=== PATIENT | female | born 1985 | race Caucasian/White ===

== ENCOUNTER 2020-08-31 10:58 | Outpatient (CLI) | payer OTHER ==
[2020-08-31 21:10] LABS: SARS-CoV-2 PCR by NAA Not Detected (NotDetected)
== END 2020-08-31 10:59 | disposition home or self-care (01) ==
LOC: CSHLAB 10:58
PROVIDERS: ATTEND Family Medicine
DX: Z20.822 Contact with and (suspected) exposure to COVID-19 (principal)
CPT/HCPCS: 87635; U0003; U0005

== ENCOUNTER 2020-09-03 05:30 | Inpatient (IN) | payer OTHER ==
[2020-09-06 06:27] VITALS: BMI 27.8
[2020-09-06] MEDS ORDERED: NS w/ Oxytocin 30 units 500 ML ONE (07:47)
[2020-09-06] MEDS ORDERED: HYDROcodone/Acetaminophen 5/325 mg Tablet PO PRN ×2 (08:41→23:15)
[2020-09-06] MEDS ORDERED: Butorphanol Tartrate 1 MG/ML VIAL SLOW IVP PRN (08:41)
[2020-09-06] MEDS ORDERED: Misoprostol 200 MCG TAB PR PRN (08:41)
[2020-09-06] MEDS ORDERED: hydrALAZINE 20 MG/ML VIAL SLOW IVP PRN ×2 (08:41→23:15)
[2020-09-06] MEDS ORDERED: Carboprost 250 MCG/ML AMP IM PRN (08:41)
[2020-09-06] MEDS ORDERED: Ondansetron PF 4 MG/2 ML Vial IVP PRN (08:41)
[2020-09-06] MEDS ORDERED: Methylergonovine 0.2 MG/ML VIAL IM PRN (08:41)
[2020-09-06] MEDS ORDERED: Lidocaine 1% (PF) 30 ML VIAL SC PRN (08:41)
[2020-09-06] MEDS ORDERED: Acetaminophen 500 MG TAB PO PRN (08:41)
[2020-09-06] MEDS ORDERED: Ibuprofen 800 MG TAB PO PRN (08:41)
[2020-09-06] MEDS ORDERED: Promethazine HCl 25 MG/ML VIAL IM PRN (08:41)
[2020-09-06] MEDS ORDERED: Lactated Ringer's 1,000 ML IV SCH (08:45)
[2020-09-06 08:55] LABS: Hemoglobin 12.8 g/dL (12.0-15.5); Mean Corpuscular HGB CONC 34.2 g/dL (32.0-36.0); Mean Corpuscular Hemoglobin 31.2 pg (27.0-33.0); Mean Corpuscular Volume 91.2 fl (81.6-98.3); Mean Platelet Volume 12.4 fl (7.4-10.4); Platelet Count 178 10x3/uL (150-450); White Blood Cell (WBC) Count 8.7 10x3/uL (3.5-10.5)
[2020-09-06] MEDS ORDERED: NS w/ Oxytocin 30 units 500 ML IV PRN (09:05)
[2020-09-06] MEDS ORDERED: NS w/ Oxytocin 30 units 500 ML IVPB SCH (09:15)
[2020-09-06 09:46] LABS: Hep B Surf Ag Non-Reactive S/CO (NonReactive); Syphilis Antibody Nonreactive (Nonreactive); Syphilis Antibody Index 0.02 S/CO (<1.00 Non-Reactive)
[2020-09-06 10:01] LABS: HBSAg Index 0.15 S/CO (0-0.99)
[2020-09-06] MEDS ORDERED: Bisacodyl 10 MG SUPP PR PRN (23:15)
[2020-09-06] MEDS ORDERED: Milk Of Magnesia 30 ML UDCUP PO PRN (23:15)
[2020-09-06] MEDS ORDERED: Benzocaine-Menthol 82.5 ML CAN TOP PRN (23:15)
[2020-09-06] MEDS ORDERED: Preparation H Ointment 28 GM TUBE PR PRN (23:15)
[2020-09-06] MEDS ORDERED: NS / Oxytocin 40 units/1000ml 1,000 ML IV SCH (23:15)
[2020-09-06] MEDS ORDERED: Lanolin Ointment 7 GM TUBE TOP PRN (23:15)
[2020-09-07] MEDS: Ibuprofen 800 MG TAB PO SCH ×3 (05:21→21:07)
[2020-09-07] MEDS: Ferrous Sulfate 325 MG TAB PO SCH ×2 (07:35→16:19)
[2020-09-07] MEDS: Docusate Calcium (SURFAK) 240 MG CAP PO SCH ×2 (08:08→21:06)
[2020-09-07 19:53] VITALS: BP 128/54; TEMP 97.9
== END 2020-09-07 10:10 | disposition home or self-care (01) | DRG 807 ==
LOC: CSHLD 09-06 05:35 → CSHPP 09-06 23:10
PROVIDERS: ADMIT Family Medicine; ATTEND Family Medicine
PROC: 4A0HXCZ Measurement of Products of Conception, Cardiac Rate, External Approach (ICD-10-PCS; principal; 2020-09-06)
PROC: 10E0XZZ Delivery of Products of Conception, External Approach (ICD-10-PCS; 2020-09-06)
PROC: 0HQ9XZZ Repair Perineum Skin, External Approach (ICD-10-PCS; 2020-09-06)
DX: O77.0 Labor and delivery complicated by meconium in amniotic fluid (principal); Z37.0 Single live birth; Z3A.39 39 weeks gestation of pregnancy; O70.0 First degree perineal laceration during delivery; O69.81X0 Labor and delivery complicated by cord around neck, without compression, not applicable or unspecified
CPT/HCPCS: 85027; 86780; 86850; 86900; 86901; 87340; 87635; U0003; U0005

== ENCOUNTER 2020-09-03 11:52 | Outpatient (CLI) | payer OTHER ==
[2020-09-04 01:24] LABS: SARS-CoV-2 PCR by NAA Not Detected (NotDetected)
== END 2020-09-03 11:53 | disposition home or self-care (01) ==
LOC: CSHLAB 11:52
PROVIDERS: ATTEND Family Medicine
DX: Z20.822 Contact with and (suspected) exposure to COVID-19 (principal)
CPT/HCPCS: 87635; U0003; U0005